=== PATIENT | female | born 1990 | race Caucasian/White ===

== ENCOUNTER 2023-12-04 21:36 | Outpatient (CLI) | payer OTHER ==
[2023-12-04 22:24] LABS: BILIRUBIN,URINE NEGATIVE (NEGATIVE); GLUCOSE, URINE (UA) NEGATIVE (NEGATIVE); KETONES,URINE (UA) NEGATIVE (NEGATIVE); LEUKOCYTE ESTERASE, URINE SMALL (NEGATIVE); NITRITE,URINE NEGATIVE (NEGATIVE); OCCULT BLOOD,URINE NEGATIVE (NEGATIVE); PH,URINE 6.5 PH (5.0-7.5); PROTEIN,URINE NEGATIVE (NEGATIVE); UROBILINOGEN,URINE 0.2 (NORMAL) E.U./dL (NORMAL)
[2023-12-04 22:39] LABS: CLARITY,URINE HAZY (CLEAR)
[2023-12-04 22:40] LABS: BACTERIA,URINE Many /HPF (None Seen); RBC,URINE 0-5 /HPF (0-5); SQUAMOUS EPITHELIAL CELL,UR MANY Squamous (<= Few)
[2023-12-04 22:51] VITALS: BP 112/76
--- NOTE | 2023-12-04 22:55 | PROVIDER PROGRESS NOTE ---
- HPI Chief Complaint: Decreased movement Current : Current EDU 03/16/24 Gestation 25 Weeks and 2 Days 2 Para 0 Vital Signs Temperature 98.2 F 12/04/23 22:05 Heart Rate 88 12/04/23 22:05 Respiratory Rate 18 12/04/23 22:05 Blood Pressure 112/76 12/04/23 22:05 Temperature 98.2 F 12/04/23 22:05 Heart Rate 88 12/04/23 22:05 Respiratory Rate 18 12/04/23 22:05 Blood Pressure 112/76 12/04/23 22:05 O2 Saturation If not protocol: Oxygen Flow, liters/minute - Procedures NST Procedure: Patient States Movement felt 2 movements but hearld many on monitor - Plan Plan: Patient is a 33-year-old -0-1-0 at 25 weeks 2 days gestation here for decreased movement. Since arrival, she has felt some bowel movements. Still less than usual. She denies headache, right upper quadrant pain, changes in vision. Does have some back crampiness and vague, mild urinary complaints She gets her care in [place]. She has a cabin here with her partner and visits most weekends. Physical Exam Constitutional: alert, no acute distress, well hydrated, well developed, well nourished, appropriate dress. Cardiovascular: Regular rate and rhythm. Respiratory: no respiratory distress. Abdomen: nondistended, nontender, no guarding. Psych: affect and mood appropriate, normal interaction, good eye contact. FHT: 140 bpm. Appropriate for gestational age Assessment and plan Decreased movement -Educated on movement expectations prior to 28 weeks. NST not indicated due to gestational age, but very reassuring heart rate tracing. Bedside ultrasound shows good movement. Posterior/fundal placenta -Has follow-up OB appointment and should follow-up for routine care.
== END 2023-12-04 22:50 | disposition home or self-care (01) ==
LOC: WFO 21:36 → FBP 21:38 → WFO 22:50
PROVIDERS: ATTEND Obstetrics & Gynecology
DX: O36.8120 Decreased fetal movements, second trimester, not applicable or unspecified (principal); Z3A.25 25 weeks gestation of pregnancy
CPT/HCPCS: 59025; 81001; 81003; 87086; 99213